=== PATIENT | male | born 1945 | race Caucasian/White ===

== ENCOUNTER 2019-08-11 12:43 | Emergency (ER) | payer OTHER ==
[~2019-08-11] VITALS: Ht 177.8 cm; Wt 99.8 kg
[~2019-08-11 12:43] MED LIST: ASPIRIN EC81 M1 PO; CELEXA40 MG PO; CITRACAL + D C1 EACH PO; FISH OIL 1,2001 EAC4 PO; RISPERDAL2 MG PO; ZANTAC 150MG T150 M1 PO; ZOCOR 20 MG TAB20 M1 PO; ZYRTEC10 M2 PO
[2019-08-11] MEDS ORDERED: METFORMIN HCL500 M3 PO (12:51)
[2019-08-11] MEDS ORDERED: NAPROSYN500 M1 PO (12:51)
[2019-08-11] MEDS ORDERED: LISINOPRIL2.5 MG PO (12:51)
[2019-08-11] MEDS ORDERED: RANITIDINE 150150 M1 PO (12:51)
[2019-08-11] MEDS ORDERED: MEMANTINE HCL10 MG PO (12:52)
[2019-08-11] MEDS ORDERED: PROZAC10 M1 PO (12:52)
[2019-08-11] MEDS ORDERED: RAZADYNE 8 MG PO (12:52)
[2019-08-11] MEDS ORDERED: BUSPIRONE HCL5 MG PO (12:53)
[2019-08-11 15:18] VITALS: BP 168/88
== END 2019-08-11 15:21 | disposition home or self-care (01) ==
LOC: M.ERS 12:43
DX: S01.01XA Laceration without foreign body of scalp, initial encounter (principal); I10 Essential (primary) hypertension; E78.00 Pure hypercholesterolemia, unspecified; E78.5 Hyperlipidemia, unspecified; F32.9 Major depressive disorder, single episode, unspecified; Z88.2 Allergy status to sulfonamides; Z88.1 Allergy status to other antibiotic agents; W22.8XXA Striking against or struck by other objects, initial encounter; Y93.89 Activity, other specified; Y92.89 Other specified places as the place of occurrence of the external cause; Y99.8 Other external cause status

== ENCOUNTER 2020-06-13 14:59 | Emergency (ER) | payer OTHER ==
[~2020-06-13] VITALS: Ht 177.8 cm; Wt 102.1 kg
[~2020-06-13 14:59] MED LIST changes: +BUSPIRONE HCL5 MG PO; +LISINOPRIL2.5 MG PO; +MEMANTINE HCL10 MG PO; +METFORMIN HCL500 M3 PO; +NAPROSYN500 M1 PO; +PROZAC10 M1 PO; +RANITIDINE 150150 M1 PO; +RAZADYNE 8 MG PO
[2020-06-13] MEDS ORDERED: CELEBREX 200 M200 MG PO (16:37)
[2020-06-13] MEDS ORDERED: FAMOTIDINE 20 M20 MG PO (16:38)
[2020-06-13] MEDS ORDERED: MULTIVITAMINS1 EAC7 PO (16:39)
[2020-06-13] MEDS ORDERED: CETIRIZINE HCL5 MG PO (16:40)
[2020-06-13] MEDS ORDERED: VITAMIN D (16:40)
[2020-06-13] MEDS ORDERED: DOXYCYCLINE 10100 M2 PO (17:16)
[2020-06-13 17:27] VITALS: BP 145/73
== END 2020-06-13 17:28 | disposition home or self-care (01) ==
LOC: M.ERS 14:59
DX: S01.91XA Laceration without foreign body of unspecified part of head, initial encounter (principal); I10 Essential (primary) hypertension; E78.5 Hyperlipidemia, unspecified; E78.00 Pure hypercholesterolemia, unspecified; Z88.1 Allergy status to other antibiotic agents; Z88.2 Allergy status to sulfonamides; Z88.8 Allergy status to other drugs, medicaments and biological substances; Z79.899 Other long term (current) drug therapy; W20.8XXA Other cause of strike by thrown, projected or falling object, initial encounter; Y93.89 Activity, other specified; Y92.89 Other specified places as the place of occurrence of the external cause; Y99.8 Other external cause status